=== PATIENT | female | born 1985 ===

== ENCOUNTER 2020-11-12 05:15 | Day surgery (SDC) | payer OTHER ==
[2020-11-12] MEDS ORDERED: NAPR500T14 PO (08:37)
[2020-11-12] MEDS ORDERED: MORGIDOX100 MG PO (08:37)
== END 2020-11-12 12:30 | disposition home or self-care (01) ==
LOC: CIR.AMB 05:15
PROVIDERS: ATTEND Obstetrics & Gynecology
DX: Z30.2 Encounter for sterilization (principal); Z20.822 Contact with and (suspected) exposure to COVID-19